=== PATIENT | female | born 1970 | race Caucasian/White ===

== ENCOUNTER 2025-05-04 19:53 | Observation (INO) | payer BC, SELFPAY ==
[2025-05-04] VITALS (13 sets, daily range): BP systolic 118–188; BP diastolic 77–122; BMI 20.9
[2025-05-04 13:54] LABS: Hematocrit 44.1 % (37.0-47.0); Hemoglobin 14.6 g/dL (12.0-16.0); Mean Corp Hgb Conc. 33.1 g/dL (33.0-37.0); Mean Corpuscular Volume 89.6 fL (81.0-99.0); Nucleated Red Blood Cells % 0 %; Platelet Count 291 10^3/uL (130-400); Red Cell Dist. Width 13.2 % (11.5-14.5)
[2025-05-04 14:11] LABS: ALT (SGPT) 19 U/L (0-35); AST (SGOT) 22 U/L (14-36); Albumin 5.0 g/dl (3.5-5.0); Alkaline Phosphatase 110 U/L (38-126); Blood Urea Nitrogen 10 mg/dl (7-17); Calcium 10.1 mg/dl (8.4-10.2); Carbon Dioxide 28 mmol/L (22-30); Chloride 103 mmol/L (98-107); Glucose 106 mg/dl (70-99); Potassium 4.4 mmol/L (3.5-5.1); Sodium 137 mmol/L (135-145); Total Protein 8.2 g/dl (6.3-8.2); eGFR > 60.00
[2025-05-04 14:22] LABS: Troponin I < 0.012 ng/ml
--- NOTE | 2025-05-04 14:48 | ED.GENMED ---
History of Present Illness
General
Chief Complaint: Chest Pain
Source: patient
Exam Limitations: none
Time Seen by Provider: 05/04/25 14:46
Nursing documentation reviewed up to this point in time: agreed with
History of Present Illness
History of Present Illness:
Note:
CHIEF COMPLAINT(S)
Chest pain, dizziness, and fatigue.
HISTORY OF PRESENT ILLNESS
The patient is a 54-year-old female who reports experiencing chest pain for about a year, which worsens with exertion and has progressively increased in severity in the last two weeks. She also reports dizziness that has been persistent in the last
two weeks, describing it as a sensation similar to being light-headed and at times feeling as though she might fall. The dizziness has significantly impacted her daily activities, including her regular walking routine. The patient further reports
feeling extremely fatigued and unable to engage in usual activities. She notes that her chest discomfort has been consistent over the year but recently intensified. 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
artery, leading to concerns about her blood pressure and heart rate, which have been fluctuating over the last few weeks. She mentioned a history of ablation for an unspecified cardiac issue.
PAST MEDICAL AND SURGICAL HISTORY
The patient had an ablation procedure on her heart, as well as surgeries for her gallbladder and spine.
CHRONIC MEDICAL CONDITIONS SIGNIFICANTLY AFFECTING CARE
The patient mentioned prior management issues with her heart rate and blood pressure, suggesting a history of supraventricular tachycardia (SVT) or related arrhythmia.
MEDICATIONS
She is not currently taking any blood pressure medications.
REVIEW OF SYSTEMS
- Cardiovascular: Ongoing chest pain for about a year, worsened over the past two weeks.
- Neurological: Dizziness described as light-headedness, with sensations of the room spinning. Occasional unsteady gait with falling tendencies.
- General: Fatigue and exhaustion recently affecting daily activities.
PHYSICAL EXAM
General: Alert, no acute distress.
Skin: Warm, dry.
Head: Normocephalic, atraumatic.
Neck: Supple, trachea midline.
Eye, Ears, Nose, Mouth, and Throat: Oral mucosa moist.
Cardiovascular: Normal peripheral perfusion, No edema.
Respiratory: Respirations are non-labored.
Gastrointestinal: Abdomen nondistended.
Back: Normal range of motion, Normal alignment.
Musculoskeletal: Normal ROM, normal strength.
Neurological: Alert and oriented to person, place, time, and situation, No focal neurological deficit observed.
Psychiatric: Cooperative, appropriate mood & affect.
PLAN
1. Perform a computed tomography (CT) scan of the head and neck to evaluate the brain and assess the arteries due to previous carotid artery blockage and current symptoms.
2. Hospital admission is considered to conduct further evaluation and workup, including an assessment of an abnormal electrocardiogram (EKG).
3. Monitor and manage blood pressure and heart rate during hospitalization.
DIFFERENTIAL DIAGNOSIS
The Differential Diagnosis includes, in no particular order and is not limited to:
1. Coronary artery disease
2. Carotid artery disease
3. Arrhythmia, such as supraventricular tachycardia
4. Transient ischemic attack
5. Cerebrovascular accident (CVA)
6. Hypertensive urgency/emergency
7. Vestibular dysfunction
8. Anemia
9. Anxiety disorder
10. Migrainous vertigo
CARE-UPDATE
05/04/25 - 19:05
Patient to be admitted for further observation and management. Initiate IV heparin, aspirin, and beta yakelin as per cardiology recommendations. No current chest pain at rest; troponin levels remain negative. Await hospitalist evaluation upon
admission.
EKG
My independent EKG interpretation is:
- Time of EKG: Not specified
- Rhythm: Tachycardia
- Heart rate: 111 bpm
- ST segment changes: Depression observed inferior leads
Disposition:
SUMMARY OF ENCOUNTER
The patient is a 54-year-old female presenting with a long-standing history of chest pain that worsened with exertion. Her symptoms recently intensified, including increased chest pain severity accompanied by dizziness and fatigue. An
electrocardiogram (EKG) revealed tachycardia with ST segment depression. Given her history of heart rate and blood pressure fluctuations, along with suspected cardiac issues, the decision was made to admit her for further evaluation and management.
IV heparin was ordered, and cardiology was consulted for their expertise due to concerns about the potential for coronary artery disease or related cardiac events.
DISPOSITION
Admit.
ASSESSMENT
The patient is suspected to be experiencing coronary artery disease with further symptoms indicative of potential arrhythmia.
EMERGENCY TREATMENTS ADMINISTERED
IV heparin was ordered to manage potential clotting issues due to her symptoms and history.
MANAGEMENT OF THE PATIENTS CARE WAS DISCUSSED WITH
Management of the patients care was discussed with the hospitalists and cardiology was consulted for further evaluation of the patients cardiac condition.
PLAN
Admit the patient to the hospital for continued observation and treatment. Initiate IV heparin therapy and consult with the cardiology team to evaluate her current cardiac status further. Continue to monitor EKG changes, heart rate, and blood
pressure while hospitalized.
INDEPENDENT REVIEW OF LABS AND INTERPRETATION OF TESTS
My independent interpretation of EKG showed tachycardia with ST segment depression observed in peer leads.
MEDICAL DECISION MAKING
- Complexity of Data Reviewed: Chronic conditions affecting care include a history of supraventricular tachycardia or related arrhythmia, and carotid artery disease. The differential diagnosis includes coronary artery disease, carotid artery
disease, arrhythmia such as supraventricular tachycardia, transient ischemic attack, cerebrovascular accident (CVA), hypertensive urgency/emergency, vestibular dysfunction, anemia, anxiety disorder, and migrainous vertigo.
- Data:
Category 1: The patient�s outpatient records and cardiac history were reviewed. An independent review of EKG data was conducted.
Category 3: Discussion of management and further examinations plans were conducted with hospitalists and cardiologists to arrange her admission and ongoing evaluation.
- Risk: Admission was necessary due to the high suspicion of coronary disease and potential cardiac complications. Continuous cardiac monitoring and management with heparin indicate significant risk levels warranting inpatient care.
DIAGNOSIS
Angina Pectoris (ICD-10: I20.9), Arrhythmia, Unspecified (ICD-10: I49.9).
Past History
Past History
ED Past Medical History: Other
ED Past Surgical History: Cardiac
Social History
Tobacco: Non-smoker
Alcohol: None
Drug: None
Personal:
Living: with family
Family History
Family History: Other
Phy Exam
Physical Exam
Physical Exam:
.
Scores
Heart Score for Chest Pain Patients
STEMI patient?: No
History: Moderately Suspicious
ECG: Significant ST-Depression
Age: >45 - <65 years
Risk Factors: No Risk Factors
Troponin: </= Normal Limit
Heart Score for Chest Pain Patients: 4
Heart Score Risk: 20.3% MACE over next 6 weeks
Course
Orders/Labs/Results
Orders:
Orders
05/04/25 13:23
EKG [Electrocardiogram (*1)] Urgent
Reason for Study: Chest Pain
EKG- Treatment ONCE
05/04/25 13:38
Complete Blood Count/With Diff Urgent
Comprehensive Metabolic Panel Urgent
Troponin I Urgent
05/04/25 15:16
CT Head & Neck Angio W/wo IV Urgent
Comment:
Reason For Exam: headache, dizzyness, diffculty walking
05/04/25 17:12
D-Dimer Urgent
05/04/25 18:43
Aspirin Chewable [Low Strength Aspirin] 324 mg PO NOW STA
05/04/25 18:44
PTT Urgent
Comment: Obtain baseline before beginning heparin infusion if not already collected
Heparin 3,400 units IV NOW STA
Nursing to Place Non Medication Order As Directed
Physician Order: PTT 6 hours after initial start of Heparin infusion
05/04/25 18:45
Heparin 17169 Units/250 ml 25,000 units in 250 ml IV PER PROTOCOL
Weight to be used for heparin protocol in kilograms (kg):: 57
Protocol:: Cardiac Tx/Acute Coronary
PTT Goal Range to be used:: PTT 73 to 111 seconds
Order type:: Initial
INITIAL Infusion Dose (UNITS/KG/hr) & then follow protocol:: 15 units/kg/hr
Infusion Dose in UNITS/hr & then follow protocol (UNITS/hr):: 850
INFUSION RATE in mL/hr & then follow protocol (mL/hr):: 8.5
PTT less than or equal to 64 seconds:: Increase rate by 200 units/hr (+ 2 mL/hr)
PTT 64.1 to 72.9 seconds:: Increase rate by 100 units/hr (+ 1 mL/hr)
PTT 73 to 111 seconds:: Target Range. No change in rate.
PTT 111.1 to 130.9 seconds:: Decrease rate by 100 units/hr (- 1 mL/hr)
PTT 131 to 199.9 seconds:: HOLD for 1 hr. Then decrease rate by 200 units/hr (- 2 mL/hr)
PTT greater than or equal to 200 seconds:: HOLD for 2 hrs & Notify Provider. Then decrease by 200 units/hr (-
2 mL/hr)
Lab follow-up:: Each change, PTT q6h until 2 consecutive are therapeutic. Then PTT
daily.
05/04/25 18:47
Metoprolol [Lopressor] 25 mg PO NOW STA
Abnormal Lab Results
05/04/25
13:38
Glucose 106 H mg/dl
(70-99)
Total Bilirubin 1.9 H mg/dl
(0.2-1.3)
05/04/25 13:38
05/04/25 13:38
Vital Signs
Initial and Last Documented VS:
Initial Vital Signs
Temp Pulse Resp BP Pulse Ox
98.5 F 121 18 188/122 98
05/04/25 13:26 05/04/25 13:26 05/04/25 13:26 05/04/25 13:26 05/04/25 13:26
Last Documented Vital Signs
Temp Pulse Resp BP Pulse Ox
98.5 F 93 17 138/98 97
05/04/25 13:26 05/04/25 18:00 05/04/25 18:00 05/04/25 18:00 05/04/25 18:00
*Pulse Oximetry
SaO2: 99
Oxygen Mode of Delivery: Room air
Patient hypoxic: no
*Critical Care Note
Total Time (30-74mins, 75-104mins- exclusive of procedures): 33
comment:
Critical care statement: A total of 33 minutes of critical care time was provided for this patient. This includes management of unstable vital signs, evaluation of the patient at bedside, reviewing the patient's pertinent medical records, discussion
with consultants, review of old EKGs and review of pertinent medical records. This time with separate from time utilized to perform the aforementioned documented procedures
ED Attending Note
-
Portions of this chart may have been created with voice recognition software.� Occasional wrong word or��sound alike� substitutions may have occurred due to the inherent limitations of voice recognition software.
Discharge Plan
Departure
Patient Disposition: Admit
Date of Disposition: 05/04/25
Time of Disposition: 18:45
Admit to: IVU
Presentation/result/management discussed w/ accepting MD/DO: Hospitalist
Patient with high blood pressure during this ER visit?: Yes
Condition: Good
Discharge Problem:
Exertional angina
Prescriptions:
No Action
[id number] [Airborne (ascorbate sodium)] 1 EACH tablet,chewable
1 ea PO DAILY
L.acidoph,paracasei,B.animalis 1 EACH capsule
1 ea PO DAILY
Referrals:
NONE,* [Family Provider, Internal Medicine]
Interventions
Interventions:
*Risk Screen - Suicide Last Done: 05/04/25 13:26
*General Assessment Last Done: 05/04/25 14:34
*Neglect/Abuse Screening Last Done: 05/04/25 14:34
*ED- Fall Risk Assessment Last Done: 05/04/25 14:34
*ED COVID-19 Vaccine History Last Done: 05/04/25 14:34
*ED Influenza Vaccine History Last Done: 05/04/25 14:34
ED- Cardiac Assessment Last Done: 05/04/25 14:34
Discharge Date and Time
Print Language: SINHALA
[2025-05-04 17:49] LABS: D-Dimer < 0.27 ug/mlFEU (0.00-0.50)
--- NOTE | 2025-05-04 19:17 | HPS.HSE ---
Addendum entered and electronically signed by Claire France MD 05/04/25 20:40:
This is an addendum to H&P written by Jenn Sarkar on 05/04/2025. �Patient seen and examined independently with [facility].
54-year-old female past medical history of SVT status post ablation, iron deficiency anemia, mitral regurgitation, uterine fibroids presenting with intermittent chest pain for a year gradually getting worse now with exertion for the past 2 weeks.
�Also with dizziness and fatigue over the past few days. �No nausea vomiting or sweating. �No symptoms currently.
EKG shows show sinus tachycardia.
Patient with progressive stable angina. �First troponin negative. �Trend troponins. �Heparin drip started aspirin given. �Echocardiogram. �Cardiology consulted. NPO past midnight for cath tomorrow.�
Original Note:
Family Physician
-
Family Physician: * NONE
Chief Complaint
-
chest pain
History of Present Illness
54 year old with PMH for iron def anemia, cardiac ablation, mitral regurgitation, uterine fibroid presented to us with worsening of her chronic left sided chest pain. for past few days, patient noted left sided chest pain worse with exertion, going
up the stairs. resolves patient stated very week, lightheaded and at times feeling as though she might fall. denied sob. The dizziness has significantly impacted her daily activities, including her regular walking routine. The patient further
reports feeling extremely fatigued and unable to engage in usual activities. her BP was 150s over 90s today and HR in 130 at home which prompted her to come to the ER.
upon arrival she was noted hypertensive and tachycardic. trop and EKG normal. Initiated on heparin drip and aspirin. Admitted for further management
Medical History
Past Medical History
Past Medical History: Reports Other
Additional Past Medical History:
Vasovagal, hypertension, iron deficiency anemia, mitral regurgitation, uterine fibroid
Past Surgical History: Reports Other
Additional Past Surgical History:
Cardiac ablation, cholecystectomy
Social History
Tobacco: Non-smoker
Alcohol: Occasional
Drug: None
Employment: Employed
Family History
Family History: Not pertinent
Allergies / Home Medications
Allergies reflects when Allergies were last updated in [employer].
Home Medications with original date entered in [employer]
Allergy/Medication List:
Allergies
Allergy/AdvReac Type Severity Reaction Status Date / Time
erythromycin base Allergy Severe Anaphylaxis Verified 05/04/25 13:26
(Erythromycin Base)
clindamycin Allergy Intermediate Hives Verified 05/04/25 13:26
nitrofurantoin (From Allergy Intermediate Hives Verified 05/04/25 13:26
Macrobid)
nitrofurantoin Allergy Intermediate Hives Verified 05/04/25 13:26
macrocrystalline (From
Macrobid)
sulfamethoxazole (From Allergy Intermediate Hives Verified 05/04/25 13:26
Bactrim)
trimethoprim (From Bactrim) Allergy Intermediate Hives Verified 05/04/25 13:26
Penicillins Allergy Unknown Unknown Verified 05/04/25 13:26
Home Medications
L.acidoph,paracasei,B.animalis 10 billion cell capsule 1 ea PO DAILY 07/29/19
mv-min-vit C-ascorb Id-Rao-Jzj-herb #124 333 mg-1.7 mg chewable tablet (Airborne (ascorbate sodium)) 1 ea PO DAILY 07/29/19
Review of Systems
-
Constitutional: Reports Fatigue
EENT: Reports No Symptoms
Respiratory: Reports No Symptoms
Cardiac: Reports Chest Pain
Abdomen/GI: Reports No Symptoms
: Reports No Symptoms
Musculoskeletal: Reports No Symptoms
Skin: Reports No Symptoms
Neurological: Reports Dizzy and Weakness
Endocrine: Reports No Symptoms
Hematologic/Lymphatic: Reports No Symptoms
Psych: Reports No Symptoms
Physical Exam
Vital Signs
Vital Signs
Temp Pulse Resp BP Pulse Ox
98.5 F 93 17 138/98 97
05/04/25 13:26 05/04/25 18:00 05/04/25 18:00 05/04/25 18:00 05/04/25 18:00
Physical Exam
General: Well Developed, Well Nourished and No Apparent Distress
HEENT: NormoCephalic, Moist mucous membranes and Atraumatic
Respiratory: Clear
Cardiac: S1/S2 and Regular Rhythm; No Murmur or Rub
GI: Soft, Non Tender, Non Distended and Normal Bowel Sounds; No Organomegaly
Rectal: Deferred by Provider
Musculoskeletal: No Clubbing, No Cyanosis and No Edema
Skin: No Rash
Neuro: AO x 3 and Nonfocal/grossly intact
Psych: Calm
Laboratory Results
-
05/04/25 13:38
05/04/25 13:38
Laboratory Results
Total Bilirubin 1.9 mg/dl (0.2-1.3) H 05/04/25 13:38
AST 22 U/L (14-36) 05/04/25 13:38
ALT 19 U/L (0-35) 05/04/25 13:38
Alkaline Phosphatase 110 U/L (38-126) 05/04/25 13:38
Troponin I < 0.012 ng/ml 05/04/25 13:38
Data Reviewed
-
CT Scan: Report Reviewed by me
Lab Data: Labs Reviewed by me
Impression/Plan
-
# Chest pain concern for NSTEMI
- Head neck CT with impression of No significant narrowing or calcific atherosclerotic disease involving the common carotid arteries, carotid bulbs, or proximal internal carotid arteries bilaterally. No significant narrowing of the cervical or
intracranial portions of the internal carotid arteries bilaterally.Normal appearance of the anterior cerebral and middle cerebral arteries.No significant narrowing involving the vertebral or basilar arteries. No significant narrowing involving the
posterior cerebral arteries.There is no angiographic evidence for arterial dissection.No evidence of acute intracranial abnormality.
- EKG with sinus tachycardia, possible left atrial enlargement, ST depression
- Initiated on heparin drip, aspirin
- Continue to trend Trope
-obtain ECHO
-NPo after MN for cardiac cath in am
- Cardiology consulted
# Hypertension/tachycardia
- Patient received a dose of metoprolol in ER
# History of SVT status post cardiac ablation
# DVT prophylaxis
- Heparin drip
# CODE STATUS
- Full code
[2025-05-04] MEDS: LOW STRENGTH ASPIRIN 324 MG PO (19:23)
[2025-05-04] MEDS: LOPRESSOR 25 MG PO (19:24)
[2025-05-04] MEDS: HEPARIN 3400 UNITS IV (19:30)
[2025-05-04] MEDS: HEPARIN 25000 UNITS/250 ML IV (19:31)
[2025-05-04 19:33] LABS: APTT 28.4 Sec (23.4-35.0)
[2025-05-04 22:12] LABS: Troponin I < 0.012 ng/ml
[2025-05-05] VITALS (18 sets, daily range): BP systolic 92–133; BP diastolic 65–90
[2025-05-05 02:13] LABS: APTT > 200 Sec (23.4-35.0)
[2025-05-05 02:15] LABS: Troponin I < 0.012 ng/ml
[2025-05-05 08:33] LABS: Glycohemoglobin (HgbA1c) 5.5 % (4.0-5.6)
[2025-05-05 08:46] LABS: HDL Cholesterol 105 mg/dl; LDL Cholesterol, Calculated 96 mg/dl; Very Low Density Lipoprotein 20 mg/dl (0-30)
[2025-05-05] MEDS: LOW STRENGTH ASPIRIN 81 MG PO (09:39)
--- NOTE | 2025-05-05 10:52 | CON.CAR ---
Consultation
Consultation Request
Date/Time Consultation Requested: 05/04/2025 at 2113 hrs.
Date/Time Consultation Performed: 05/05/2025 at about 0900 hrs.
Requesting Provider: LALO Humphreys
Performing Provider: Karri Mendoza MD
Reason for Consultation: Progressive chest pain, abnormal EKG
Medical History
-
Chief Complaint: Progressive exertional chest pain
History of Present Illness:
Thank you for having me see Stephenie Odonnell in consult. She has had 1 year of progressive chest pain. Over the past several weeks it has become incapacitating. Every time she exerts herself such as walking around her house she will develop substernal
chest pressure with squeezing lasting several minutes. Symptoms stop when she stops her activity and resolve fairly quickly after stopping activity. In the last several days she has been having associated dizziness when she exerts herself. That
is what finally prompted her to come to the ER. Her longest episode of chest pain was 20 minutes.
She has had some elevated blood pressure readings in the past and she started to check her heart rate and blood pressure recently and she has had some elevated blood pressure readings but not consistently elevated.
Past Medical History
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 No recurrence)
Past Surgical History: Cholecystectomy and Gynecological (Uterine surgery)
Social History
Tobacco: Non-Smoker
Alcohol: Occasional
Personal: Other (No children. 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
Family History
Family History: Other (Sister had end-stage renal disease at a young age apparently precipitated by a strep infection. She at the age of 36 with a stroke. Father had CAD in his 60s but at 80 from a CVA. Mother at 90 suddenly.)
Allergies / Home Medications
Allergy/AdvReac Type Severity Reaction Status Date / Time
clindamycin Allergy Hives Verified 05/04/25 21:15
erythromycin base Allergy Anaphylaxis Verified 05/04/25 21:15
(Erythromycin Base)
nitrofurantoin (From Allergy Hives/TACHY Verified 05/04/25 21:15
Macrobid) CARDIA
nitrofurantoin Allergy Hives/TACHY Verified 05/04/25 21:15
macrocrystalline (From CARDIA
Macrobid)
Penicillins Allergy Unknown Verified 05/04/25 21:15
sulfamethoxazole (From Allergy Hives Verified 05/04/25 21:15
Bactrim)
trimethoprim (From Bactrim) Allergy Hives Verified 05/04/25 21:15
�Medication �Instructions �Recorded �Confirmed �Type
L.acidoph,paracasei,B.animalis 10 1 ea PO DAILY Supplement 07/29/19 07/29/19 History
billion cell capsule
mv-min-vit C-ascorb 1 ea PO DAILY Supplement 07/29/19 07/29/19 History
Mw-Ths-Zaf-herb #124 333 mg-1.7 mg
chewable tablet (Airborne
(ascorbate sodium))
Review of Systems
-
History Source: Patient
All other systems: Negative unless noted
Constitutional: No Symptoms
EENT: No Symptoms
Cardiac: Chest Pain
Abdomen/GI: No Symptoms
: No Symptoms
Physical Exam
Vital Signs
Temp Pulse Resp BP Pulse Ox
98.4 F 96 12 120/78 99
05/05/25 08:00 05/05/25 08:00 05/05/25 08:00 05/05/25 08:00 05/05/25 03:36
Lab Results
05/04/25 13:38
05/04/25 13:38
Troponin I Cancelled 05/05/25 04:30
Physical Exam
General: Well Developed and Well Nourished
HEENT: Normocephalic and Anicteric
Respiratory: Clear and Non Labored Respirations
Cardiac: S1/S2, Regular Rhythm and Other (No murmur)
GI: Soft and Non Tender
Musculoskeletal: No Clubbing and No Cyanosis
Skin: Warm and Dry
Neuro: AO x 3 and No Motor Deficits; Negative Tremors
Psych: Calm
Impression / Plan
-
Impressive progress exertional chest pain syndrome consistent with acute coronary syndrome. Normal enzymes. No evidence of infarction\\
Initial EKG was abnormal with inferior ST depression and very subtle ST elevation in V1 and V2. Subsequent EKG entirely normalized. Troponins are normal.
I felt this is a highly compelling case and I do not feel comfortable with a stress test for risk stratification. I discussed the case with my invasive partner and he is accepted her for diagnostic coronary angiography. Revascularization will be
performed if clinically appropriate based on anatomy and clinical presentation.
Remote AVNRT/slow pathway ablation. No evidence of recurrent arrhythmia.
Intermittent elevations of blood pressure without a diagnosis of hypertension.
Intermittently abnormal EKG.
Elevated HDL, 105. Typically highly cardiac protective. Rarely associated with early CAD
Suggest: Continue IV heparin. Given the progressive lifestyle-limiting chest pain and abnormal EKG upon presentation I have recommended progressing to coronary angiography.
Data Reviewed
-
EKG: Tracing Personally Visualized and interpreted (All EKGs in our system reviewed. [address] segment abnormality inferiorly. Admission EKG had inferior ST segment abnormality as well as subtle ST abnormality in V1 and V2. Most recent
EKG normal.) and Other (Telemetry shows only sinus rhythm)
Radiology: Other (I reviewed her echo images from today: Normal LV function. Normal RV. Pulm hypertension was not identified. No significant valve disease seen.)
CT Scan: Report Reviewed by me (Head and neck CTA did not reveal any atherosclerosis or dissection.)
[2025-05-05 10:53] LABS: APTT 64.1 Sec (23.4-35.0)
--- NOTE | 2025-05-05 13:53 | ITS.CL.CATH ---
[employer] - Catheterization
Cardiac Catheterization
Procedure Report:
CARDIAC CATHETERIZATION REPORT
Date of Procedure: 05/05/2025
Referring: Karri Mendoza M.D.
Indication: Chest discomfort, abnormal EKG.
PROCEDURE:
1. Right heart catheterization.
2. Coronary angiography.
3. Left heart catheterization.
A total of 46 minutes of procedural/moderate sedation was utilized. An independent medical driver was present to assist with and help manage the patient's level of consciousness and physiologic status.
ACCESS:
1. 6 Finnish right radial artery using a modified Seldinger technique.
2. 5 Finnish right antecubital vein using a modified Seldinger technique under ultrasound guidance.
CATHETERS:
1. 5 Finnish balloon wedge.
2. 5 Finnish JL 3.5.
3. 5 Finnish JR4.
HEMODYNAMIC DATA
Weight (kg): 51.8
AO (s/d/x, mmHg): 106/79/92
LV (s/x, mmHg): 112/5
PCWP (a/v/x, mmHg): 1313/6
PA (s/d/x, mmHg): 20/05/
RV (s/x, mmHg): 23/5
RA (a/v/x, mmHg): 88/
SVC SvO2 (%): 65.7
IVC SvO2 (%): Not obtained.
RA SvO2 (%): Not obtained.
RV SvO2 (%): Not obtained.
PA SvO2 (%): 69.1
SaO2 (%): 95.7
Hbg (g/dL): 13.1
JAMES
CO (L/min): 3.29
CI (L/min/m2): 2.19
Thermodilution
CO (L/min): Not performed.
CI (L/min/m2): Not performed.
TPG (mmHg): 8
PVR (Licea Units): 2.43
SVR (dynes*seconds*cm^-5): 2116
AVO2 Diff (Volume %): 4.74
Cardiac Power Output (no): 0.67 (MAP * CO)/451 (normal 0.5 - 0.7; 0.4 - 0.6 in the elderly)
Cardiac Power Index (no/m2): 0.45 (MAP * CI)/451
Anil: 2.6 (PAs-PAd)/RA
AV gradient (x, mmHg): None.
AV area (cm2): Normal.
MV gradient (x, mmHg): None.
MV area (cm2): Normal
LEFT VENTRICULOGRAPHY: Not performed.
AORTOGRAPHY: Not performed.
CORONARY ANGIOGRAPHY
Dominance: Right.
Left Main: Normal size, trifurcating vessel. There is no coronary artery disease.
LAD: Normal size vessel giving rise to 1 significant diagonal. There is a focal area of calcification in the proximal vessel.
Ramus: Medium size vessel supplying the the proximal anterolateral wall. There is no coronary artery disease
Circumflex: Large size, nondominant vessel giving rise to 2 obtuse marginals. There is no coronary artery disease. The distal aspect of OM 2 is severely tortuous.
RCA: Normal size, dominant vessel. There is no coronary artery disease. The RPDA is severely tortuous.
INTERVENTIONS
None.
Closure Device: Vascular band for the right radial artery, manual pressure for the right antecubital vein
Radiation dose (mGy): 117.31
DAP (cm2.Gy): 6.7904
Fluoroscopy time (minutes): 3.5
CONCLUSIONS:
1. Right dominant circulation with focal calcification in the proximal LAD but no intraluminal coronary artery disease.
2. Normal filling pressures (LVEDP = 5 mmHg, PCWP = 6 mmHg at 51.8 kg).
3. Preserved cardiac function (cardiac index = 2.19 L/min/m�, cardiac power output = 0.67 W, Anil = 2.6).
RECOMMENDATIONS:
1. Expectant management after cardiac catheterization via right radial/antecubital approach.
2. Limited weight bearing on the right wrist for one week.
3. Continue evaluation for what is likely noncardiac chest discomfort.
4. Consider primary prevention statin given calcification observed on the proximal LAD.
Copy to: Karri Mendoza M.D., LALO Bragg
Mina Lewis DO, FACC, FACP
--- NOTE | 2025-05-05 14:14 | CM ---
Alert awake patient who lives with Ankit SO in a 2 story home with 3 steps to enter and 16 steps to bed bathroom She is independent in all ADLs and driving.Observation letter explained and all question answered.Pt did not sign. Letter not signed
on chart.Offered VN she declined need.Pt went for cardiac cath today.
No VN / SNF hx
Pharmacy [facility] [address]
PCP Dr Knowles Old PCP Pt given [facility] as a PCP recourse
PLAN Home no needs
--- NOTE | 2025-05-05 15:34 | W.PN.HOSP.TC ---
Today's Communication/Plan
-
Assessment / Plan
Assessment / Plan
General: No Apparent Distress, Comfortable and Conversant
HEENT: NormoCephalic, Moist mucous membranes, Atraumatic
Respiratory: Clear and Non Labored Respirations
Cardiac: S1/S2 and Regular Rhythm; No Rub or Gallop
GI: Soft, Non Tender, Non Distended and Normal Bowel Sounds
Musculoskeletal: No Edema, no deformity
Skin: Warm and dry
: NO Elizabeth
Neuro: Awake, Alert, Nonfocal/grossly intact
Psych: Calm and Intact Judgment/Insight
Ms. 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
and near syncope over the past few days. She has also noted high heart rate and blood pressure readings at home. In the ED her troponins were negative but she had slightly abnormal EKG readings. She was admitted for further evaluation and
management.
Chest pain and near syncope:
- Evaluated by cardiology this morning, coronary angiography this afternoon with no evidence of obstructive disease, IV heparin discontinued
- Patient is still having episodes of tachycardia with heart rate up to the 140s with minimal exertion
- Will discuss with cardiology regarding next after treatment including possibility of beta-blockers or calcium channel blockers
- Continue low-dose aspirin
DVT prophylaxis: Lovenox
CODE STATUS: Full code
Total time spent on today's encounter was 46 minutes
Anticipated Discharge: 24 - 48 hours
Subjective/Interval History
-
Date of Service: May 05, 2025
Patient was seen and examined at bedside this morning. Currently comfortable but presented after multiple near syncopal episodes. Planning coronary angiography today.
Objective Data
-
Labs:
Laboratory Results
05/05/25 05/05/25
10: 17:00
APTT 64.1 H Pending
Vital Signs:
Vital Signs
Temp Pulse Resp BP Pulse Ox
98.3 F 103 16 111/90 97
05/05/25 15:01 05/05/25 15:01 05/05/25 15:01 05/05/25 15:01 05/05/25 15:01
Review of Systems
-
History Source: Patient
All other systems: Reviewed and negative
Physical Exam
-
General: No Apparent Distress
--- NOTE | 2025-05-05 16:43 | PTCARENOTE ---
pt back from cathlab at 13:45, pt is AAO*3, Vss, room air. pt denied any pain. pt with arm band to the right radial. pulse ox on the extremity at 97%. cool to touch. pt oriented to the room. family at the bedside updated. call moeller within the reach.
[2025-05-05] MEDS: LOVENOX 40 MG SC (18:02)
[2025-05-05] MEDS: TOPROL XL 50 MG PO (18:02)
[2025-05-05] MEDS: TYLENOL 650 MG PO (19:28)
[2025-05-06 03:39] VITALS: BP 112/77
[2025-05-06 05:58] VITALS: BMI 21.3
[2025-05-06 07:36] VITALS: BP 113/76
[2025-05-06 08:03] LABS: Hematocrit 39.6 % (37.0-47.0); Hemoglobin 13.0 g/dL (12.0-16.0); Mean Corp Hgb Conc. 32.8 g/dL (33.0-37.0); Mean Corpuscular Volume 91.5 fL (81.0-99.0); Platelet Count 225 10^3/uL (130-400); Red Cell Dist. Width 13.1 % (11.5-14.5)
[2025-05-06] MEDS: LOW STRENGTH ASPIRIN 81 MG PO (08:03)
[2025-05-06] MEDS: TOPROL XL 50 MG PO (08:03)
[2025-05-06 08:37] LABS: Blood Urea Nitrogen 15 mg/dl (7-17); Calcium 9.6 mg/dl (8.4-10.2); Carbon Dioxide 29 mmol/L (22-30); Chloride 107 mmol/L (98-107); Estimated Creatinine Clearance 62 ml/min; Glucose 92 mg/dl (70-99); Potassium 4.3 mmol/L (3.5-5.1); Sodium 139 mmol/L (135-145); eGFR > 60.00
[2025-05-06 09:11] VITALS: BP 124/71; BP 126/87; PULSE 76
--- NOTE | 2025-05-06 09:15 | PTOTSP ---
The patient is independent with ambulation and elevations without a device, HR remained stable with activity. Encouraged the patient to get up more frequently to walk now that her HR is more stable. No PT needs identified at this time, will sign off.
[2025-05-06 10:42] VITALS: BP 104/70
[2025-05-06] MEDS: TYLENOL 650 MG PO (10:43)
--- NOTE | 2025-05-06 11:07 | W.PN.CD ---
Today's Communication / Plan
-
d/c home on toprol w
will arrange follow up.
Impression / Plan
-
chest pain: CAC seen no obstructive lesions. Seemed to be linked to palpitations, htn and dizziness. Feeling better with toprol. Sinus tach seen on monitor yesterday, none further.
-will d/c on Toprol and arrange follow up
-offer primary prevention statin, to push LDL<70, but reports a lot of drug side effects so wants to start once at a time.
Remote AVNRT/slow pathway ablation. No evidence of recurrent arrhythmia. ST on monitor.
Intermittent elevations of blood pressure without a diagnosis of hypertension. Improved with bb
Subjective: some intermitting dizziness but able to walk the stairs with pt feeling better
05/06/25 Cath :
CONCLUSIONS:
1. Right dominant circulation with focal calcification in the proximal LAD but no intraluminal coronary artery disease.
2. Normal filling pressures (LVEDP = 5 mmHg, PCWP = 6 mmHg at 51.8 kg).
3. Preserved cardiac function (cardiac index = 2.19 L/min/m�, cardiac power output = 0.67 W, Anil = 2.6).
RECOMMENDATIONS:
1. Expectant management after cardiac catheterization via right radial/antecubital approach.
2. Limited weight bearing on the right wrist for one week.
3. Continue evaluation for what is likely noncardiac chest discomfort.
4. Consider primary prevention statin given calcification observed on the proximal LAD..
Physical Exam
Vital Signs/Labs
Vital Signs
Temp Pulse Resp BP Pulse Ox
98.5 F 84 16 104/70 99
05/06/25 07:36 05/06/25 07:36 05/06/25 07:36 05/06/25 10:42 05/06/25 07:36
05/05/25 05/06/25 05/07/25
06:59 06:59 06:59
Actual Weight 114 lb 4 oz 116 lb 7 oz
05/06/25 06:31
05/06/25 06:31
APTT Cancelled 05/05/25 17:00
Triglycerides 102 mg/dl (10-149) 05/05/25 06:46
LDL Cholesterol, Calc 96 mg/dl 05/05/25 06:46
VLDL Cholesterol, Calc 20 mg/dl (0-30) 05/05/25 06:46
HDL Cholesterol 105 mg/dl 05/05/25 06:46
LAB Results
05/04/25 05/04/25 05/05/25
13:38 21:37 01:35
Troponin I < 0.012 < 0.012 < 0.012
05/05/25
04:30
Troponin I Cancelled
Physical Exam
Constitutional: No acute distress
Cardiovascular: Rhythm & rate is regular, Pedal edema is absent, JVD pressure is normal, Systolic murmur absent and Diastolic murmur absent
Respiratory: Respiratory effort normal, Lungs clear to auscul., Wheeze Absent and Crackles Absent
Neuro/Psych: AO x 3
Other: Cath Site (rra site well healed, cephalic vein site, ecchymotic but soft no hematoma)
Data Reviewed
-
Date of Service: May 06, 2025
Medical Decision Making: Review of Case with other Provider (Dr Steven briones for discharge.)
[2025-05-06 11:09] LABS: ALT (SGPT) 15 U/L (0-35); AST (SGOT) 18 U/L (14-36); Albumin 4.2 g/dl (3.5-5.0); Alkaline Phosphatase 71 U/L (38-126); Total Protein 6.7 g/dl (6.3-8.2)
[2025-05-06 11:37] VITALS: BP 113/76
--- NOTE | 2025-05-06 12:10 | W.DCSUMMARY ---
Discharge Summary
Discharge Data
Date of Admission: 05/04/25
Date of Discharge: 05/06/25
Total time spent discharging patient (in min): 47
-
Pending Results: No
Hospital Course
Ms. Odonnell is a 54-year-old female with a medical history of AVNRT (status post ablation at [facility] 2004) mitral regurgitation, iron deficiency anemia, and uterine fibroids who presented with left-sided chest pain with multiple episodes of dizziness
and near syncope over the past few days prior to arrival. She has also noted high heart rate and blood pressure readings at home. In the ED her troponins were negative but she had abnormal EKG readings. She was admitted for further evaluation and
management.
Echocardiogram showed normal structure and function. She underwent coronary angiography with no evidence of obstructive disease. She had multiple episodes of symptomatic tachycardia while inpatient. She was started on metoprolol succinate 50 mg
daily, after which her tachycardia significantly improved. She will be discharged to home with outpatient cardiology follow-up. She has been instructed to follow-up with her PCP and with cardiology. If her heart rate or blood pressure are
difficult to control in the future it would be reasonable to pursue a workup for possible pheochromocytoma in the outpatient setting including 24-hour urine collection for catecholamines and metanephrines. At the time of hospital discharge she was
medically stable.
General: No Apparent Distress, Comfortable and Conversant
HEENT: NormoCephalic, Moist mucous membranes, Atraumatic
Respiratory: Clear and Non Labored Respirations
Cardiac: S1/S2 and Regular Rhythm; No Rub or Gallop
GI: Soft, Non Tender, Non Distended and Normal Bowel Sounds
Musculoskeletal: No Edema, no deformity
Skin: Warm and dry
: NO Elizabeth
Neuro: Awake, Alert, Nonfocal/grossly intact
Psych: Calm and Intact Judgment/Insight
Discharge Plan
-
Patient Disposition: Home (Routine Discharge)
Discharge Diagnosis/Procedures: cardiac catheterization, tachycardia
Activity Restrictions/Additional Instructions:
You were started on beta-blockers for intermittent symptomatic tachycardia. Your heart rate has been much better controlled after starting this medication. Your echocardiogram showed normal structure and function of your heart. You underwent
coronary angiography which showed no blockages of your coronary arteries. Your lab work was unremarkable. You will need to follow-up closely with cardiology in their outpatient office. You should also follow-up with your primary care physician
for ongoing monitoring of your heart rate and blood pressure. In the future, if your heart rate and blood pressure are difficult to control it would be reasonable to pursue a workup for possible pheochromocytoma which includes a 24-hour urine
collection. At the time of hospital discharge you were medically stable.
Stand Alone Forms: DC Instructions- Cath/EP Lab
Referrals:
Helen Sampson CRNP [Specified Professional Personl, Cardiology] - 05/24/25 1:40 pm
Mayra Fermin CRNP [Specified Professional Personl, Internal Medicine]
Prescriptions:
New
metoprolol succinate 50 mg Tablet Extended Release 24 Hr
50 mg PO DAILY 60 Days Qty: 60 0RF
Continued
Airborne (ascorbate sodium) 1 EACH tablet,chewable
1 ea PO DAILY
L.acidoph,paracasei,B.animalis 1 EACH capsule
1 ea PO DAILY
Discharge Orders:
Discharge Patient (As Directed); Ordered 05/06/25
Ordered By: Naresh Harris
Discharge Date and Time
Print Language: ROMANSH
--- NOTE | 2025-05-06 15:49 | CM ---
MD entered order for discharge.
Ankit SO will drive her home.
Offered VN she declined need.
PLAN Home no needs
--- NOTE | 2025-05-06 15:54 | PTCARENOTE ---
Discharge order reviewed. Instruction reviewed with pt. No further questions. IV site and telemetry pack removed. Pt escorted to husbands car by wheelchair.
== END 2025-05-06 15:34 | disposition home or self-care (01) ==
LOC: 4 EAST ACU 19:53
PROVIDERS: Nurse Practitioner; Registered Nurse; ADMITTING PHYSICIAN Hospitalist; ATTENDING PHYSICIAN Internal Medicine; CONSULT PHYSICIAN Internal Medicine Cardiovascular Disease; EMERGENCY PHYSICIAN Emergency Medicine
DX: R00.0 Tachycardia, unspecified (principal); R07.89 Other chest pain; I25.10 Atherosclerotic heart disease of native coronary artery without angina pectoris; R55 Syncope and collapse; I10 Essential (primary) hypertension; Z79.899 Other long term (current) drug therapy
CPT/HCPCS: 70496; 70498; 80053; 80061; 82248; 83036; 84443; 84484; 85025; 85027; 85379; 85730; 93005; 93306; 93460; 96365; 96366; 97161; 99152; 99153; 99291; C1769; C1894; G0378; Q9967